=== PATIENT | male | born 1945 | race Caucasian/White ===

== ENCOUNTER 2024-05-04 12:04 | Inpatient (IN) | payer OTHER ==
[2024-05-04 13:06] VITALS: BMI 30.6
[2024-05-04] MEDS ORDERED: Senokot S 8.6-50 MG TAB PO PRN (14:00)
[2024-05-04] MEDS ORDERED: Acetaminophen 650 MG Suppository PR PRN (14:00)
[2024-05-04] MEDS ORDERED: Ondansetron PF 4 MG/2 ML Vial IVP PRN (14:00)
[2024-05-04] MEDS ORDERED: Ondansetron ODT 4 MG TAB PO PRN (14:00)
[2024-05-04] MEDS ORDERED: Calcium Carbonate 500 MG ChewTAB PO PRN (14:00)
[2024-05-04 14:52] LABS: Hemoglobin A1c 5.1 % (4.0-6.0)
[2024-05-04 15:00] LABS: Magnesium 2.1 mg/dL (1.6-2.6)
[2024-05-04 15:06] LABS: Troponin I Less than 0.010 ng/mL (< 0.028)
[2024-05-04] MEDS: Lisinopril 10 MG TAB PO SCH (16:43)
[2024-05-04] MEDS: Carvedilol 6.25 MG TAB PO SCH ×2 (17:00→21:12)
[2024-05-04] MEDS: Nitroglycerin 0.4 MG TAB (25 Tab Bottle) SL PRN (18:18)
[2024-05-04 19:37] LABS: Troponin I Less than 0.010 ng/mL (< 0.028)
[2024-05-04] MEDS: Famotidine 20 MG TAB PO SCH (21:12)
[2024-05-04] MEDS: Simvastatin 10 MG TAB PO SCH (21:12)
[2024-05-05 07:47] LABS: Anion Gap 14 mmol/L (10-20); BUN (Urea Nitrogen) 13 mg/dL (8.4-25.7); Calc. Creatinine Clearance 72 mL/min (70-130); Calcium 9.3 mg/dL (7.8-10.44); Carbon Dioxide 21 mmol/L (23-31); Cardiac Risk 3.7 (Less than 4.5); Chloride 106 mmol/L (98-107); Cholesterol 165 mg/dl (< 200 Desired); Estimated GFR 64; Glucose 99 mg/dL (83-110); HDL Cholesterol 45 mg/dL (>60 Neg Risk); LDL Cholesterol, Calculated 98 mg/dL; Potassium 4.1 mmol/L (3.5-5.1); Sodium 137 mmol/L (136-145); Triglycerides 108 mg/dL (Less than 150)
[2024-05-05] MEDS: Acetaminophen 325 MG TAB PO PRN (09:30)
[2024-05-05] MEDS: Aspirin Chewable 81 MG TAB PO SCH (09:30)
[2024-05-05] MEDS: Lisinopril 10 MG TAB PO SCH (09:30)
[2024-05-05] MEDS: Enoxaparin 40 MG (0.4 mL) SYRINGE SC SCH (09:30)
[2024-05-05] MEDS: NIFEdipine XL 30 MG ER.TAB PO SCH (12:31)
[2024-05-05] MEDS: Rosuvastatin 20 MG TAB PO SCH (20:14)
[2024-05-06] MEDS ORDERED: NIFEdipine XL 30 MG ER.TAB PO SCH (09:00)
[2024-05-06] MEDS ORDERED: Regadenoson 0.4 MG/5 ML SYRINGE ONE (09:15)
[2024-05-06] MEDS: NIFEdipine XL 60 MG ER.TAB PO SCH (10:49)
[2024-05-06] MEDS: Famotidine 20 MG TAB PO SCH (10:50)
[2024-05-07 08:45] VITALS: TEMP 98.3
[2024-05-07 11:45] VITALS: BP 161/96
== END 2024-05-07 15:22 | disposition home or self-care (01) | DRG 313 ==
LOC: OBS 12:04 → OBSVTOIN 05-06 13:20
PROVIDERS: ADMIT Internal Medicine; ATTEND Internal Medicine
DX: R07.89 Other chest pain (principal); I25.10 Atherosclerotic heart disease of native coronary artery without angina pectoris; I25.2 Old myocardial infarction; I10 Essential (primary) hypertension; E78.5 Hyperlipidemia, unspecified; E03.9 Hypothyroidism, unspecified; Z79.82 Long term (current) use of aspirin; Z79.899 Other long term (current) drug therapy; Z98.890 Other specified postprocedural states; Z82.49 Family history of ischemic heart disease and other diseases of the circulatory system; Z66 Do not resuscitate; F03.90 Unspecified dementia, unspecified severity, without behavioral disturbance, psychotic disturbance, mood disturbance, and anxiety
CPT/HCPCS: 36415; 78452; 80048; 80061; 83036; 83735; 84443; 93017; 93306; 96372; A9500; G0378; J1650; J2785

== ENCOUNTER 2024-12-13 13:32 | Inpatient (IN) | payer OTHER ==
[2024-12-13] MEDS ORDERED: Acetaminophen 325 MG TAB PO PRN (14:03)
[2024-12-13] MEDS ORDERED: Senokot S 8.6-50 MG TAB PO PRN (14:03)
[2024-12-13] MEDS ORDERED: OCTAGAM 10% (10 GM/100 ML VIAL) IVPB SCH ×2 (15:02→16:00)
[2024-12-13 15:03] LABS: #Basophils 0.03 10x3/uL (0.0-0.2); #Eosinophils 0.04 10x3/uL (0.0-0.7); #Monocytes 0.88 10x3/uL (0.11-0.59); #Neutrophils 10.62 10x3/uL (1.40-6.50); %Basophils 0.2 % (0.0-1.0); %Eosinophils 0.3 % (0.0-10.0); %Lymphocytes 11.4 % (21.0-51.0); %Monocytes 6.6 % (0.0-10.0); %Neutrophils 80.0 % (42.0-75.0); Hematocrit 29.6 % (42.0-52.0); Hemoglobin 10.6 g/dL (14.0-18.0); Mean Corpuscular Hemoglobin 32.1 pg (27.0-31.0); Mean Corpuscular Volume 89.7 fL (78.0-98.0); Platelet Count Less than 2 10x3/uL (130-400); Red Blood Cell (RBC) Count 3.30 mill/uL (4.70-6.10); White Blood Cell (WBC) Count 13.28 10x3/uL (4.8-10.8)
[2024-12-13 15:11] LABS: ALT (SGPT) 66 U/L (Less than 45); AST (SGOT) 63 U/L (11-34); Albumin 2.6 g/dL (3.1-4.5); Alkaline Phosphatase 122 U/L (40-110); Anion Gap 12 mmol/L (10-20); BUN (Urea Nitrogen) 21 mg/dL (8.4-25.7); Bilirubin, Total 0.8 mg/dL (0.3-1.2); Calc. Creatinine Clearance 67 mL/min (70-130); Calcium 8.2 mg/dL (7.8-10.44); Carbon Dioxide 20 mmol/L (23-31); Chloride 100 mmol/L (98-107); Globulin 3.2 g/dL (2.4-3.5); Glucose 120 mg/dL (83-110); Potassium 3.9 mmol/L (3.5-5.1); Sodium 128 mmol/L (136-145)
[2024-12-13 15:13] LABS: Fibrinogen 627.0 mg/dL (253-463)
[2024-12-13 15:14] LABS: INR-International Normal Ratio 1.3; PTT 37.6 sec (22.9-36.1); Prothrombin Time 16.4 sec (12.0-14.7)
[2024-12-13 15:22] LABS: D-Dimer Test 6.29 mcg/mL (0.27-0.43)
[2024-12-13 15:30] LABS: Platelet Adequacy Comment Significant Decrease; Polychromasia SLIGHT = 2-3 cells HPF (0-2)
[2024-12-13 15:33] LABS: HIV (1/2) Antibody/Antigen NONREACTIVE (NonReactive); HIV 1/2 INDEX 0.18 S/CO (<1.00); Hep C IgG Ab NONREACTIVE S/CO (NonReactive); Hep C Index 0.08 S/CO (0-0.79)
[2024-12-13] MEDS: Pantoprazole 40 MG VIAL IVP SCH ×2 (16:28→20:20)
[2024-12-13] MEDS: Carvedilol 6.25 MG TAB PO SCH (16:28)
[2024-12-13] MEDS: PRIVIGEN IVPB SCH (17:51)
[2024-12-13] MEDS: Rosuvastatin 20 MG TAB PO SCH (20:20)
[2024-12-13] MEDS ORDERED: Famotidine 20 MG TAB PO SCH (21:00)
[2024-12-14 05:41] LABS: #Basophils Less than 0.03 10x3/uL (0.0-0.2); #Eosinophils Less than 0.03 10x3/uL (0.0-0.7); #Monocytes 0.31 10x3/uL (0.11-0.59); #Neutrophils 8.50 10x3/uL (1.40-6.50); %Basophils 0.2 % (0.0-1.0); %Eosinophils 0.0 % (0.0-10.0); %Lymphocytes 10.0 % (21.0-51.0); %Monocytes 3.1 % (0.0-10.0); %Neutrophils 84.5 % (42.0-75.0); Hematocrit 27.4 % (42.0-52.0); Hemoglobin 9.7 g/dL (14.0-18.0); Mean Corpuscular Hemoglobin 32.0 pg (27.0-31.0); Mean Corpuscular Volume 90.4 fL (78.0-98.0); Platelet Count 24 10x3/uL (130-400); Red Blood Cell (RBC) Count 3.03 mill/uL (4.70-6.10); White Blood Cell (WBC) Count 10.06 10x3/uL (4.8-10.8)
[2024-12-14 05:56] LABS: ALT (SGPT) 52 U/L (Less than 45); AST (SGOT) 48 U/L (11-34); Albumin 2.5 g/dL (3.1-4.5); Alkaline Phosphatase 114 U/L (40-110); Anion Gap 10 mmol/L (10-20); BUN (Urea Nitrogen) 22 mg/dL (8.4-25.7); Bilirubin, Total 0.6 mg/dL (0.3-1.2); Calc. Creatinine Clearance 75 mL/min (70-130); Calcium 8.3 mg/dL (7.8-10.44); Carbon Dioxide 22 mmol/L (23-31); Chloride 103 mmol/L (98-107); Globulin 5.0 g/dL (2.4-3.5); Glucose 150 mg/dL (83-110); Potassium 4.2 mmol/L (3.5-5.1); Sodium 131 mmol/L (136-145)
[2024-12-14] MEDS ORDERED: OCTAGAM 10% (10 GM/100 ML VIAL) IVPB SCH (09:00)
[2024-12-14] MEDS: Dexamethasone 4 MG TAB PO SCH (09:01)
[2024-12-14] MEDS: NIFEdipine XL 60 MG ER.TAB PO SCH (09:01)
[2024-12-14] MEDS: Ondansetron PF 4 MG/2 ML Vial IVP PRN (11:23)
[2024-12-15] MEDS: Melatonin 3 MG TAB PO PRN (06:05)
[2024-12-15 09:28] LABS: #Basophils Less than 0.03 10x3/uL (0.0-0.2); #Eosinophils Less than 0.03 10x3/uL (0.0-0.7); #Monocytes 0.43 10x3/uL (0.11-0.59); #Neutrophils 9.31 10x3/uL (1.40-6.50); %Basophils 0.1 % (0.0-1.0); %Eosinophils 0.0 % (0.0-10.0); %Lymphocytes 10.2 % (21.0-51.0); %Monocytes 3.9 % (0.0-10.0); %Neutrophils 83.8 % (42.0-75.0); Hematocrit 26.0 % (42.0-52.0); Hemoglobin 9.1 g/dL (14.0-18.0); Mean Corpuscular Hemoglobin 31.7 pg (27.0-31.0); Mean Corpuscular Volume 90.6 fL (78.0-98.0); Platelet Count 59 10x3/uL (130-400); Red Blood Cell (RBC) Count 2.87 mill/uL (4.70-6.10); White Blood Cell (WBC) Count 11.10 10x3/uL (4.8-10.8)
[2024-12-15 09:51] LABS: Anion Gap 6 mmol/L (10-20); BUN (Urea Nitrogen) 18 mg/dL (8.4-25.7); Calc. Creatinine Clearance 99 mL/min (70-130); Calcium 8.0 mg/dL (7.8-10.44); Carbon Dioxide 23 mmol/L (23-31); Chloride 109 mmol/L (98-107); Glucose 138 mg/dL (83-110); Potassium 4.1 mmol/L (3.5-5.1); Sodium 134 mmol/L (136-145)
[2024-12-16] MEDS: Calcium Carbonate 500 MG ChewTAB PO PRN (02:00)
[2024-12-16 02:12] LABS: #Basophils Less than 0.03 10x3/uL (0.0-0.2); #Eosinophils Less than 0.03 10x3/uL (0.0-0.7); #Monocytes 0.35 10x3/uL (0.11-0.59); #Neutrophils 8.14 10x3/uL (1.40-6.50); %Basophils 0.0 % (0.0-1.0); %Eosinophils 0.0 % (0.0-10.0); %Lymphocytes 10.5 % (21.0-51.0); %Monocytes 3.6 % (0.0-10.0); %Neutrophils 84.1 % (42.0-75.0); Hematocrit 21.4 % (42.0-52.0); Hemoglobin 7.4 g/dL (14.0-18.0); Mean Corpuscular Hemoglobin 31.8 pg (27.0-31.0); Mean Corpuscular Volume 91.8 fL (78.0-98.0); Platelet Count 99 10x3/uL (130-400); Red Blood Cell (RBC) Count 2.33 mill/uL (4.70-6.10); White Blood Cell (WBC) Count 9.68 10x3/uL (4.8-10.8)
[2024-12-16 07:35] LABS: Anion Gap 7 mmol/L (10-20); BUN (Urea Nitrogen) 18 mg/dL (8.4-25.7); Calc. Creatinine Clearance 93 mL/min (70-130); Calcium 8.3 mg/dL (7.8-10.44); Carbon Dioxide 21 mmol/L (23-31); Chloride 106 mmol/L (98-107); Glucose 116 mg/dL (83-110); Potassium 3.9 mmol/L (3.5-5.1); Sodium 130 mmol/L (136-145)
[2024-12-16 07:42] LABS: #Basophils Less than 0.03 10x3/uL (0.0-0.2); #Eosinophils Less than 0.03 10x3/uL (0.0-0.7); #Monocytes 0.56 10x3/uL (0.11-0.59); #Neutrophils 8.98 10x3/uL (1.40-6.50); %Basophils 0.2 % (0.0-1.0); %Eosinophils 0.0 % (0.0-10.0); %Lymphocytes 11.8 % (21.0-51.0); %Monocytes 5.1 % (0.0-10.0); %Neutrophils 81.1 % (42.0-75.0); Hematocrit 28.0 % (42.0-52.0); Hemoglobin 9.7 g/dL (14.0-18.0); Mean Corpuscular Hemoglobin 31.6 pg (27.0-31.0); Mean Corpuscular Volume 91.2 fL (78.0-98.0); Platelet Count 126 10x3/uL (130-400); Red Blood Cell (RBC) Count 3.07 mill/uL (4.70-6.10); White Blood Cell (WBC) Count 11.07 10x3/uL (4.8-10.8)
[2024-12-16 11:00] LABS: Anisocytosis SLIGHT = 6-15 cells HPF (0-5); Macrocytosis SLIGHT = 6-15 cells HPF (0-5); Platelet Adequacy Comment Platelets Decreased; Polychromasia SLIGHT = 2-3 cells HPF (0-2)
[2024-12-16] MEDS: Senokot S 8.6-50 MG TAB PO SCH (20:31)
[2024-12-17 06:09] LABS: ALT (SGPT) 52 U/L (Less than 45); AST (SGOT) 42 U/L (11-34); Albumin 2.2 g/dL (3.1-4.5); Alkaline Phosphatase 100 U/L (40-110); Anion Gap 8 mmol/L (10-20); BUN (Urea Nitrogen) 17 mg/dL (8.4-25.7); Bilirubin, Total 0.6 mg/dL (0.3-1.2); Calc. Creatinine Clearance 112 mL/min (70-130); Calcium 8.0 mg/dL (7.8-10.44); Carbon Dioxide 20 mmol/L (23-31); Chloride 106 mmol/L (98-107); Globulin 5.8 g/dL (2.4-3.5); Glucose 85 mg/dL (83-110); Lipase 82 U/L (8-78); Magnesium 2.0 mg/dL (1.6-2.6); Potassium 3.6 mmol/L (3.5-5.1); Sodium 130 mmol/L (136-145)
[2024-12-17 07:28] LABS: #Basophils Less than 0.03 10x3/uL (0.0-0.2); #Eosinophils Less than 0.03 10x3/uL (0.0-0.7); #Monocytes 0.68 10x3/uL (0.11-0.59); #Neutrophils 6.76 10x3/uL (1.40-6.50); %Basophils 0.2 % (0.0-1.0); %Eosinophils 0.2 % (0.0-10.0); %Lymphocytes 21.7 % (21.0-51.0); %Monocytes 6.9 % (0.0-10.0); %Neutrophils 69.1 % (42.0-75.0); Hematocrit 29.3 % (42.0-52.0); Hemoglobin 10.2 g/dL (14.0-18.0); Mean Corpuscular Hemoglobin 31.9 pg (27.0-31.0); Mean Corpuscular Volume 91.6 fL (78.0-98.0); Platelet Count 121 10x3/uL (130-400); Red Blood Cell (RBC) Count 3.20 mill/uL (4.70-6.10); White Blood Cell (WBC) Count 9.80 10x3/uL (4.8-10.8)
[2024-12-17] MEDS ORDERED: Electrolyte Replacement Protocol 1 EACH FS SCH (07:34)
[2024-12-17] MEDS: Magnesium 2 GM/50 ML(in water) 2 GM in Premix 1 BAG IVPB SCH (09:24)
[2024-12-17 11:57] VITALS: BP 144/80; TEMP 97.4
[2024-12-17 16:14] LABS: Heparin-Induced Ab (HITA) 0.095 OD (0.000-0.400)
== END 2024-12-17 13:56 | disposition home or self-care (01) | DRG 813 ==
LOC: MSONC 13:32
PROVIDERS: ADMIT Internal Medicine; ATTEND Internal Medicine
DX: D69.3 Immune thrombocytopenic purpura (principal); E87.1 Hypo-osmolality and hyponatremia; N17.9 Acute kidney failure, unspecified; E03.9 Hypothyroidism, unspecified; N18.2 Chronic kidney disease, stage 2 (mild); Z90.49 Acquired absence of other specified parts of digestive tract; E66.9 Obesity, unspecified; D63.1 Anemia in chronic kidney disease; Z66 Do not resuscitate; E87.5 Hyperkalemia; Z79.899 Other long term (current) drug therapy; I25.2 Old myocardial infarction; E78.00 Pure hypercholesterolemia, unspecified; I12.9 Hypertensive chronic kidney disease with stage 1 through stage 4 chronic kidney disease, or unspecified chronic kidney disease
CPT/HCPCS: 36415; 36430; 71045; 74018; 80048; 80053; 83690; 83735; 84100; 85025; 85379; 85384; 85610; 85730; 86803; 86850; 86900; 86901; 87040; 87389; 97139; J0780; J1459; J2405; J2470; J2550; J3475; J7030; J8540; P9035